=== PATIENT | female | born 1985 | race African-American/Black ===

== ENCOUNTER 2022-04-19 11:51 | Emergency (ER) | payer OTHER ==
[~2022-04-19] VITALS: Ht 160 cm; Wt 117.9 kg
[2022-04-19] MEDS ORDERED: MECLIZINE HCL12.5 MG PO (12:22)
[2022-04-19] MEDS ORDERED: ONDANSETRON HCL 4 MG ORAL DISINTEGRATING TAB ONE (12:26)
[2022-04-19] MEDS ORDERED: MECLIZINE HCL 12.5 MG TAB ONE (12:26)
[2022-04-19] MEDS ORDERED: MECLIZINE HCL 12.5 MG TAB PO ONE (12:30)
[2022-04-19] MEDS ORDERED: ONDANSETRON HCL 4 MG ORAL DISINTEGRATING TAB PO ONE (12:30)
== END 2022-04-19 12:40 | disposition home or self-care (01) ==
LOC: ER 11:54
DX: R42 Dizziness and giddiness (principal); I10 Essential (primary) hypertension
CPT/HCPCS: 99283; J8597; Q0162